=== PATIENT | male | born 1985 | race Caucasian/White ===

== ENCOUNTER 2016-09-24 21:01 | Inpatient (IN) | payer SELFPAY ==
[~2016-09-24] VITALS: Ht 175.3 cm; Wt 71.5 kg
[2016-09-24 21:54] VITALS: Ht 175.3 cm; Wt 71.5 kg
[2016-09-24 22:37] LABS: ADD SCAN DIFF NO
[2016-09-24 22:41] LABS: BASOPHILS % 0.5 % (0.0-2.0); EOSINOPHILS # 0.1 10^3/ul (0.0-0.5); EOSINOPHILS % 1.6 % (0.0-7.0); HEMATOCRIT 45.2 % (42.0-52.0); HEMOGLOBIN 15.7 g/dl (14.0-18.0); LYMPHOCYTES # 2.5 10^3/ul (0.8-2.9); LYMPHOCYTES % 28.6 % (15.0-51.0); MEAN CORPUSCULAR HEMOGLOBIN 29.8 pg (29.0-33.0); MEAN CORPUSCULAR HGB CONC 34.7 g/dl (32.0-37.0); MEAN CORPUSCULAR VOLUME 85.8 fl (82.0-101.0); MEAN PLATELET VOLUME 9.8 fl (7.4-10.4); MONOCYTE # 0.8 10^3/ul (0.3-0.9); MONOCYTES % 9.5 % (0.0-11.0); NEUTROPHIL # 5.2 10^3/ul (1.6-7.5); NEUTROPHILS % 59.5 % (39.0-77.0); PLATELET COUNT 265 10^3/UL (140-415); RED BLOOD COUNT 5.27 10^6/ul (4.70-6.10); RED CELL DISTRIBUTION WIDTH 12.7 % (11.5-14.5); WHITE BLOOD COUNT 8.7 10^3/ul (4.8-10.8)
[2016-09-24 22:51] LABS: CREATININE 0.97 mg/dl (0.61-1.24)
[2016-09-24 22:52] LABS: CALCIUM 9.7 mg/dl (8.4-10.2)
--- NOTE | 2016-09-24 23:16 | RADRPT ---
PROCEDURE: XR Chest. CLINICAL INDICATION: Chest pain TECHNIQUE: AP Portable chest. COMPARISON: No pertinent prior examinations were submitted for comparison. FINDINGS: The cardiomediastinal silhouette is normal. There is a large left pneumothorax picking up approxima tely 80% of the left chest volume. The osseous structures are unremarkable. There is no obvious med iastinal shift. IMPRESSION: Large left pneumothorax. Findings were discussed with HERMINIA SLADE at approximately 09/24/2016 11:13:07 PM. RPTAT: HIKT .José Miguel Lindsey MD, MD Date Time Electronically viewed and signed by .José Miguel Lindsey MD, MD on 09/24/2016 23:16 .T/
[2016-09-25] VITALS (11 sets, daily range): BP systolic 122–154; BP diastolic 76–95; PULSE 50–87; RESP 15–20; TEMP 98.2; BMI 23.3
[2016-09-25] MEDS ORDERED: ETOMIDATE 20 MG INJ IV ONE
[2016-09-25] MEDS ORDERED: PROPOFOL 20 ML ONE ×2 (00:51→00:52)
[2016-09-25] MEDS ORDERED: PROPOFOL 0 ML ONE (01:09)
[2016-09-25] MEDS ORDERED: ONDANSETRON 4 MG INJ IV STA (01:26)
[2016-09-25] MEDS ORDERED: HYDROmorphONE 1 MG/ML SYG IV STA (01:26)
[2016-09-25] MEDS ORDERED: PROPOFOL 200 MG INJ IV ONE (01:30)
[2016-09-25] MEDS ORDERED: CEFTRIAXONE 1 GM/50 ML (PMX) 50 ML IVPB ONE (01:30)
--- NOTE | 2016-09-25 01:48 | RADRPT ---
PROCEDURE: Chest. CLINICAL INDICATION: Chest pain. TECHNIQUE: Single frontal view of the chest was obtained. COMPARISON: 09/24/2016. FINDINGS: There is interval placement of a left-sided chest tube extending to the perihilar region. The left- sided pneumothorax is no longer visualized. The cardiac silhouette is within normal limits. The ao rtic arch is unremarkable. There is no focal consolidation, vascular congestion or pleural effusion . There is mild left basilar atelectasis. IMPRESSION: Interval left-sided chest tube placement with pneumothorax no longer visualized. Mild left basilar atelectasis. .Alexis Gil MD, Date Time Electronically viewed and signed by .Alexis Gil MD, MD on 09/25/2016 01:48 .T/
[2016-09-25] MEDS ORDERED: SOD CHLORIDE 0.9% 1,000 ML IV SCH (01:59)
[2016-09-25] MEDS ORDERED: ACETAMINOPHEN 325 MG TAB PO PRN ×3 (02:00→13:30)
[2016-09-25] MEDS ORDERED: ONDANSETRON 4 MG INJ IV PRN (02:00)
--- NOTE | 2016-09-25 02:08 | ERA ---
ER Documentation Chief Complaint Date/Time DATE: 09/25/16 TIME: 02:04 Chief Complaint Shortness of breath, and diminished lung sound x2 days HPI This is a 31-year-old male here for double pneumothorax. The patient has had a pneumothorax a few years ago that was spontaneous and was treated with a pigtail catheter. The patient states 2 days ago he had sudden left-sided chest pain with shortness of breath that he said was reminiscent of his prior pneumothorax. He is not having any shortness of breath but thought that it was not getting better so decided to get evaluated. He does have some pleuritic pain when he breathes in and some exertional dyspnea but not at rest ROS All systems reviewed and are negative except as per history of present illness. Medications Home Meds No Active Prescriptions or Reported Meds Allergies Allergies: Coded Allergies: No Known Allergy (Unverified , 09/24/16) PMhx/Soc Medical and Surgical Hx: pt denies Medical Hx, pt denies Surgical Hx History of Surgery: No Anesthesia Reaction: No Hx Neurological Disorder: No Hx Respiratory Disorders: No Hx Cardiac Disorders: No Hx Psychiatric Problems: No Hx Miscellaneous Medical Probl: No Hx Alcohol Use: No Hx Substance Use: No Hx Tobacco Use: No Smoking Status: Never smoker FmHx Family History: No coronary disease Physical Exam Vitals Vital Signs Date Time Temp Pulse Resp B/P Pulse Ox O2 Delivery O2 Flow Rate FiO2 09/25/16 00:50 100 15.0 100 09/25/16 00:30 98.7 102 21 120/82 99 Nasal Cannula 2.0 09/24/16 22:00 98.7 111 20 142/100 98 Room Air 09/24/16 21:54 98.7 108 18 136/87 99 Physical Exam Const: Well-developed, well-nourished Head: Atraumatic, normocephalic Eyes: Normal Conjunctiva, PERRLA, EOMI, normal sclera, no nystagmus ENT: Normal External Ears, Nose and Mouth, moist mucus membranes. Neck: Full range of motion. No meningismus, no lymphadenopathy. Resp: Right lung is clear to auscultation, left lung has no breath sounds, trachea is midline Cardio: Regular rate and rhythm, no murmurs, S1 S2 present Abd: Soft, non tender x 4, non distended. Normal bowel sounds, no guarding or rebound, no pulsitile abdominal masses or bruits Skin: No petechiae or rashes, no ecchymosis , no maculopapular rash Back: No midline or flank tenderness Ext: No cyanosis, or edema, FROM x 4, normal inspection, neurovascularly intact x 4 Neur: Awake and alert, STR 5/5 x 4, sensation intact x 4, no focal findings, cerebellum intact Psych: Normal Mood and Affect Result Diagram: 09/24/16222409/24/162224 Results 24 hrs Laboratory Tests Test 09/24/16 22:25 Anion Gap 18 Basophils # 0.010^3/ul Basophils % 0.5% Blood Urea Nitrogen 13mg/dl Calcium Level 9.7mg/dl Carbon Dioxide Level 30mmol/L Chloride Level 102mmol/L Creatinine 0.97mg/dl Eosinophils # 0.110^3/ul Eosinophils % 1.6% Glucose Level 104mg/dl Hematocrit 45.2% Hemoglobin 15.7g/dl Lymphocytes # 2.510^3/ul Lymphocytes % 28.6% Mean Corpuscular Hemoglobin 29.8pg Mean Corpuscular Hemoglobin Concent 34.7g/dl Mean Corpuscular Volume 85.8fl Mean Platelet Volume 9.8fl Monocytes # 0.810^3/ul Monocytes % 9.5% Neutrophils # 5.210^3/ul Neutrophils % 59.5% Nucleated Red Blood Cells # 0.010^3/ul Nucleated Red Blood Cells % 0.0/100WBC Platelet Count 45082^3/UL Potassium Level 4.0mmol/L Red Blood Count 5.2710^6/ul Red Cell Distribution Width 12.7% Sodium Level 146mmol/L White Blood Count 8.710^3/ul Current Medications Medications (Trade) Dose Ordered Sig/Evette Route PRN Reason Start Time Stop Time Status Last Admin Dose Admin Etomidate 100 mg 100 mg ONCE ONCE IV 09/25/16 00:00 09/25/16 00:01 DC Propofol 20 ml @ ud STK-MED ONCE .ROUTE 09/25/16 00:51 09/25/16 00:52 DC Propofol 20 ml @ ud STK-MED ONCE .ROUTE 09/25/16 00:52 09/25/16 00:53 DC Propofol 0 ml @ ud STK-MED ONCE .ROUTE 09/25/16 01:09 09/25/16 01:10 DC Ceftriaxone Sodium (Rocephin) 50 ml @ 100 mls/hr ONCE ONCE IVPB 09/25/16 01:30 09/25/16 01:59 DC 09/25/16 01:30 Propofol (Diprivan) 280 mg ONCE ONCE IV 09/25/16 01:30 09/25/16 01:31 DC Hydromorphone HCl (Dilaudid) 1 mg ONCE STAT IV 09/25/16 01:26 09/25/16 01:27 DC 09/25/16 01:30 Ondansetron HCl 4 mg 4 mg ONCE STAT IV 09/25/16 01:26 09/25/16 01:27 DC 09/25/16 01:30 Sodium Chloride (NS) 1,000 ml @ 80 mls/hr [id number] IV 09/25/16 01:59 09/25/16 14:28 Ondansetron HCl (Zofran Inj) 4 mg ER BRIDGE PRN IV NAUSEA AND/OR VOMITING 09/25/16 02:00 09/26/16 01:59 Acetaminophen (Tylenol Tab) 650 mg ER BRIDGE PRN PO MILD PAIN/FEVER 09/25/16 02:00 09/26/16 01:59 Procedures/MDM PROCEDURE: XR Chest. CLINICAL INDICATION: Chest pain TECHNIQUE: AP Portable chest. COMPARISON: No pertinent prior examinations were submitted for comparison. FINDINGS: The cardiomediastinal silhouette is normal. There is a large left pneumothorax picking up approximately 80% of the left chest volume. The osseous structures are unremarkable. There is no obvious mediastinal shift. IMPRESSION: Large left pneumothorax. Findings were discussed with HERIMNIA SLADE at approximately 09/24/2016 11: 13:07 PM. RPTAT: HIKT .José Miguel Lindsey MD, MD Date Time Electronically viewed and signed by .José Miguel Lindsey MD, on 09/24/2016 23:16 .T/ CC: HERMINIA DAVISON DO PROCEDURE: Chest. CLINICAL INDICATION: Chest pain. TECHNIQUE: Single frontal view of the chest was obtained. COMPARISON: 09/24/2016. FINDINGS: There is interval placement of a left-sided chest tube extending to the perihilar region. The left-sided pneumothorax is no longer visualized. The cardiac silhouette is within normal limits. The aortic arch is unremarkable. There is no focal consolidation, vascular congestion or pleural effusion. There is mild left basilar atelectasis. IMPRESSION: Interval left-sided chest tube placement with pneumothorax no longer visualized. Mild left basilar atelectasis. .Alexis Gil MD, MD Date Time Electronically viewed and signed by .Alexis Gil MD, on 09/25/2016 01:48 .T/ CC: HERMINIA DAVISON DO Chest Tube Placement by me: Patient consented, sterilely draped, full prep, gown, glove, mask, time out performed. Anesthesia: Conscious sedation Location: Mid-Anterior Axillary Line, approximate 5th intercostal Device: 28 [place] chest tube Technique: Vertical incision, blunt dissection above the superior rib border , tactile confirmation Results: Chest tube fogging Secured with suture and taping. No complications. Attached to waterseal. Chest X-ray 1V Interpreted by me: Pneumothorax diminished , chest tube in pleural space facing cephalad. Normal soft tissue. Procedural Sedation: Pre-assessment performed. See preceding complete history and physical for details. Time out performed. See sedation documentation for details. Risk, benefits and alternatives were discussed with the patient. Medication(s): Propofol Complications: No hypoxic or apneic events Recovered without incident. A minimum of 16 minutes of face to face time was performed including preparation, sedation and recovery time. Critical Care Time: 30 minutes Treatments/Evaluations: Close monitoring and treatment of unstable vital signs, cardiorespiratory, and neurologic status, while maintaining tight balance of fluid, respiratory, and cardiac interventions. This time includes discussing the case with the patient and the patient's family. This time does not include all procedures stated elsewhere in this record. This time also includes reviewing old records, labs and radiological studies. This time includes examining and re-examining the patient. Additionally, this time also includes arranging care with admitting and consulting physicians. Patient was given Rocephin 1 g IV. Dilaudid and Zofran for pain and nausea control. Tolerated the procedure well he is resting comfortably in bed no apparent chest tube leak Departure Diagnosis: Primary Impression: Pneumothorax, left Condition: Stable HERMINIA DAVISON DO Sep 25, 2016 02:08
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
[2016-09-25] MEDS ORDERED: ONDANSETRON 4 MG TAB PO PRN ×2 (03:30→13:30)
[2016-09-25] MEDS ORDERED: NACL 0.9% 3 ML SYG IV SCH (03:30)
[2016-09-25] MEDS: SOD CHLORIDE 0.9% 1,000 ML IV SCH ×3 (04:00→11:27)
[2016-09-25] MEDS: FAMOTIDINE 20 MG TAB PO SCH ×2 (09:13→20:17)
--- NOTE | 2016-09-25 11:08 | PN ---
Date/Time of Note Date/Time of Note DATE: 09/25/16 TIME: 11:03 Assessment/Plan VTE Prophylaxis VTE Prophylaxis Intervention: SCD's Lines/Catheters IV Catheter Type (from Nrsg): Saline Lock Urinary Cath still in place: No Assessment/Plan Assessment/Plan 1) Spontaneous Left Pneumothorax - Chest Tube placed in ER - IVF NS pain control with Tylenol, norco, IV dilaudid to see patient Subjective 24 Hr Interval Summary Free Text/Dictation s/p chest tube palcement for spontaneuous pneumothorax Exam/Review of Systems Vital Signs Vitals Vital Signs Date Time Temp Pulse Resp B/P Pulse Ox O2 Delivery O2 Flow Rate FiO2 09/25/16 08:06 62 09/25/16 07:48 98.6 19 137/81 98 09/25/16 04:30 Nasal Cannula 3.0 09/25/16 00:50 100 Intake and Output 09/24/16 09/24/16 09/25/16 15:00 23:00 07:00 Intake Total 60 ml Balance 60 ml Exam Const: Well-developed, well-nourished 31 year old male in NAD, lying in bed , awake while RN does his intake on the jean pierre. Head: Atraumatic, normocephalic Eyes: PERRLA, EOMI, no scleral icterus ENT: Normal External Ears, Nose and Mouth, moist mucus membranes. Neck: Full range of motion. Supple. No lymphadenopathy. Trachea midline. Resp: CTA bilaterally with moderate airflow as it hurts patient at the chest tube site to take a deeper breath. Cardio: Normal rate and regular rhythm, no murmurs, S1 S2 normal. Abd: Soft, non tender x 4, non distended. Normal bowel sounds, no guarding or rebound, no pulsitile abdominal masses or bruits Skin: No petechiae or rashes, no ecchymosis , no maculopapular rash Ext: No cyanosis, or edema, neurovascularly intact x 4 Neur: Awake and alert, CN II - XII grossly intact, non-focal. Speech normal Psych: Normal Mood and Affect. Good eye contact. Results Result Diagram: 09/24/16222409/24/162224 Results 24 hrs Laboratory Tests Test 09/24/16 22:25 Anion Gap 18 H Basophils # 0.0 Basophils % 0.5 Blood Urea Nitrogen 13 Calcium Level 9.7 Carbon Dioxide Level 30 Chloride Level 102 Creatinine 0.97 Eosinophils # 0.1 Eosinophils % 1.6 Glucose Level 104 Hematocrit 45.2 Hemoglobin 15.7 Lymphocytes # 2.5 Lymphocytes % 28.6 Mean Corpuscular Hemoglobin 29.8 Mean Corpuscular Hemoglobin Concent 34.7 Mean Corpuscular Volume 85.8 Mean Platelet Volume 9.8 Monocytes # 0.8 Monocytes % 9.5 Neutrophils # 5.2 Neutrophils % 59.5 Nucleated Red Blood Cells # 0.0 Nucleated Red Blood Cells % 0.0 Platelet Count 265 Potassium Level 4.0 Red Blood Count 5.27 Red Cell Distribution Width 12.7 Sodium Level 146 H White Blood Count 8.7 Medications Medications Current Medications Sodium Chloride 1,000 ml @ 80 mls/hr [id number] IV Last administered on 09/25/16 02:03; Admin Dose 80 MLS/HR; Start 09/25/16 at 01:59; Stop 09/25/16 at 14:28 Sodium Chloride (NS) 1,000 ml @ 125 mls/hr Q8H IV Last administered on 04:00; Admin Dose 125 MLS/HR; Start 09/25/16 at 03:09 Ondansetron HCl (Zofran Tab) 4 mg Q6H PRN PO NAUSEA AND/OR VOMITING; Start 09/25 at 03:30 Acetaminophen (Tylenol Tab) 650 mg Q6H PRN PO PAIN LEVEL 1-3 OR FEVER Last administered on 09/25/16 04:16; Admin Dose 650 MG; Start 09/25/16 at 03:30 Famotidine (Pepcid) 20 mg Q12 PO Last administered on 09/25/16 09:13; Admin Dose 20 MG; Start 09/25/16 at 09:00 YOLI MEJIA MD Sep 25, 2016 11:08
[2016-09-25] MEDS ORDERED: HYDROCODONE/APAP (5/325) TAB PO PRN (11:30)
[2016-09-25] MEDS ORDERED: ZOLPIDEM 5 MG TAB PO PRN (11:30)
[2016-09-25] MEDS ORDERED: HYDROmorphONE 1 MG/ML SYG IV PRN (11:30)
[2016-09-26] VITALS (11 sets, daily range): BP systolic 131–152; BP diastolic 84–88; PULSE 58–80; RESP 15–22
[2016-09-26] MEDS: SOD CHLORIDE 0.9% 1,000 ML IV SCH ×2 (00:32→13:50)
[2016-09-26 06:10] LABS: AADO2 Arterial 24.2 mmHg (7.0-24.0); Allen Test ACCEPTAB; Arterial Base Excess 1.2 mmol/L (-3.0-3); Arterial COHb 0.1 % (0.0-3.0); Arterial Fraction of Oxyhgb 94.5 % (93.0-99.0); Arterial MetHb 0.4 % (0.0-1.5); Arterial Total Hemglobin 15.2 g/dl (12.0-18.0); MODE ROOM AIR
[2016-09-26 07:29] LABS: ADD SCAN DIFF NO
[2016-09-26 07:33] LABS: BASOPHILS % 0.5 % (0.0-2.0); EOSINOPHILS # 0.1 10^3/ul (0.0-0.5); EOSINOPHILS % 1.9 % (0.0-7.0); HEMATOCRIT 40.9 % (42.0-52.0); HEMOGLOBIN 14.1 g/dl (14.0-18.0); LYMPHOCYTES # 1.4 10^3/ul (0.8-2.9); LYMPHOCYTES % 22.6 % (15.0-51.0); MEAN CORPUSCULAR HEMOGLOBIN 29.7 pg (29.0-33.0); MEAN CORPUSCULAR HGB CONC 34.5 g/dl (32.0-37.0); MEAN CORPUSCULAR VOLUME 86.3 fl (82.0-101.0); MEAN PLATELET VOLUME 9.5 fl (7.4-10.4); MONOCYTE # 0.6 10^3/ul (0.3-0.9); MONOCYTES % 9.6 % (0.0-11.0); NEUTROPHIL # 4.1 10^3/ul (1.6-7.5); NEUTROPHILS % 64.9 % (39.0-77.0); PLATELET COUNT 203 10^3/UL (140-415); RED BLOOD COUNT 4.74 10^6/ul (4.70-6.10); RED CELL DISTRIBUTION WIDTH 12.6 % (11.5-14.5); WHITE BLOOD COUNT 6.4 10^3/ul (4.8-10.8)
[2016-09-26 07:46] LABS: PARTIAL THROMBOPLASTIN TIME 32.9 Sec (25.0-35.0); PROTIME 13.2 Sec (12.2-14.2)
[2016-09-26 07:59] LABS: CALCIUM 8.9 mg/dl (8.4-10.2); CREATININE 0.8 mg/dl (0.61-1.24)
--- NOTE | 2016-09-26 09:27 | RADRPT ---
PROCEDURE: XR Chest AP portable CLINICAL INDICATION: Tube placement for pneumothorax TECHNIQUE: An AP portable radiograph of the chest was submitted. COMPARISON: 09/25/2016 FINDINGS: Support Hardware: The left thoracostomy tube has been repositioned with the tip directed superiorly at the lateral aspect of the left upper lung zone. Cardiovascular: The cardiovascular silhouette appears unremarkable. Lung [place]: Slight discoid atelectasis is again seen in the left lower lobe. Pleural Spaces: No pneumothorax or pleural effusion is identified. Osseous Structures: The osseous structures appear intact. Soft Tissues: The soft tissues appear unremarkable. IMPRESSION: 1. Repositioning of the left thoracostomy tube with the tip now directed superiorly at the lateral left upper lung zone. 2. No pneumothorax or pleural fluid accumulation is identified. 3. Persistent minimal discoid atelectasis seen in the left lower lobe. 4. Otherwise, unremarkable portable chest. Physician Redd Date Time Electronically viewed and signed by Physician Redd on 09/26/2016 09:26 /
[2016-09-26] MEDS: FAMOTIDINE 20 MG TAB PO SCH ×2 (09:48→20:50)
--- NOTE | 2016-09-26 12:03 | PN ---
Date/Time of Note Date/Time of Note DATE: 09/26/16 TIME: 12:01 Assessment/Plan VTE Prophylaxis VTE Prophylaxis Intervention: SCD's Lines/Catheters IV Catheter Type (from Nrsg): Saline Lock Urinary Cath still in place: No Assessment/Plan Assessment/Plan 1) Spontaneous Left Pneumothorax - Chest Tube placed in ER pain control with Tylenol, norco, IV dilaudid to see patient Subjective 24 Hr Interval Summary Free Text/Dictation s/p chest tube in ED, BP stable,afebrile, Exam/Review of Systems Vital Signs Vitals Vital Signs Date Time Temp Pulse Resp B/P Pulse Ox O2 Delivery O2 Flow Rate FiO2 09/26/16 11:55 98.2 69 19 152/84 98 09/25/16 20:30 Nasal Cannula 3.0 09/25/16 00:50 100 Intake and Output 09/25/16 09/25/16 09/26/16 14:59 22:59 06:59 Intake Total 1000 ml 120 ml 1060 ml Balance 1000 ml 120 ml 1060 ml Exam Head: Atraumatic, normocephalic Eyes: PERRLA, EOMI, no scleral icterus ENT: Normal External Ears, Nose and Mouth, moist mucus membranes. Neck: Full range of motion. Supple. No lymphadenopathy. Trachea midline. Resp: CTA bilaterally with moderate airflow as it hurts patient at the chest tube site to take a deeper breath. Cardio: Normal rate and regular rhythm, no murmurs, S1 S2 normal. Abd: Soft, non tender x 4, non distended. Normal bowel sounds, no guarding or rebound, no pulsitile abdominal masses or bruits Results Result Diagram: 09/26/16 0715 09/26/16 0715 Results 24 hrs Laboratory Tests Test 09/26/16 05:00 09/26/16 07:15 Arterial Blood HCO3 26.0 Arterial Blood Base Excess 1.2 Arterial Blood Oxygen Saturation 95.0 Ross Test ACCEPTAB Arterial Blood Gas Puncture Site Right Radial Arterial Blood Carboxyhemoglobin 0.1 Arterial Blood Date Drawn 09/26/2016 5:10:00 AM Arterial Blood Methemoglobin 0.4 Arterial Blood pCO2 (Temp correct) 42.2 Arterial Blood pH (Temp corrected) 7.408 Arterial Blood pO2 (Temp corrected) 75.0 L Blood Gas A-a O2 Differential 24.2 H Blood Gas Modality ROOM AIR Blood Gas Notified Time 09/26/2016 5:23:00 AM Blood Gas Notified Whom MA Blood Gas Specimen Source Blood arterial Blood Gas Temperature 37.0 FiO2 21.0 Oxyhemoglobin Percent 94.5 Total Hemoglobin 15.2 Activated Partial Thromboplast Time 32.9 Anion Gap 13 Basophils # 0.0 Basophils % 0.5 Blood Urea Nitrogen 9 Calcium Level 8.9 Carbon Dioxide Level 30 Chloride Level 104 Creatinine 0.80 Eosinophils # 0.1 Eosinophils % 1.9 Glucose Level 89 Hematocrit 40.9 L Hemoglobin 14.1 INR International Normalized Ratio 1.00 Lymphocytes # 1.4 Lymphocytes % 22.6 Mean Corpuscular Hemoglobin 29.7 Mean Corpuscular Hemoglobin Concent 34.5 Mean Corpuscular Volume 86.3 Mean Platelet Volume 9.5 Monocytes # 0.6 Monocytes % 9.6 Neutrophils # 4.1 Neutrophils % 64.9 Nucleated Red Blood Cells # 0.0 Nucleated Red Blood Cells % 0.0 Platelet Count 203 # Potassium Level 4.0 Prothrombin Time 13.2 Prothrombin Time Ratio 1.0 Red Blood Count 4.74 Red Cell Distribution Width 12.6 Sodium Level 143 White Blood Count 6.4 # Medications Medications Current Medications Sodium Chloride (NS) 1,000 ml @ 75 mls/hr [id number] IV Last administered on 09/26 00:32; Admin Dose 75 MLS/HR; Start 09/25/16 at 03:09 Famotidine (Pepcid) 20 mg Q12 PO Last administered on 09/26/16 09:48; Admin Dose 20 MG; Start 09/25/16 at 09:00 Acetaminophen (Tylenol Tab) 650 mg Q4H PRN PO PAIN LEVEL 1-3 OR FEVER Last administered on 09/25/16 23:43; Admin Dose 650 MG; Start 09/25/16 at 13:30 Ondansetron HCl (Zofran Tab) 4 mg Q4H PRN PO NAUSEA AND/OR VOMITING; Start 09/25 at 13:30 Acetaminophen/ Hydrocodone Bitart ([place] (5/325)) 1 tab Q4H PRN PO moderate pain; Start 09/25/16 at 11:30 Hydromorphone HCl (Dilaudid) 1 mg Q4H PRN IV severe pain ; Start 09/25/16 at 11: 30 Zolpidem Tartrate (Ambien) 5 mg HS PRN PO INSOMNIA; Start 09/25/16 at 11:30 YOLI MEJIA MD Sep 26, 2016 12:02
--- NOTE | 2016-09-26 17:27 | CONS ---
DATE OF ADMISSION: 09/25/2016 DATE OF CONSULTATION: CARDIOLOGY CONSULTATION REASON FOR CONSULTATION: Pneumothorax. HISTORY OF PRESENT ILLNESS: This is a 31-year-old male, who was admitted to the emergency room amanda use of shortness of breath. The left side was found to have a pneumothorax. A chest tube was place d. Subsequently, on the chest x-ray today, the lung is expanded. Chest tube was minimal drainage. PAST MEDICAL HISTORY: None. ALLERGIES: NONE. SOCIAL HISTORY: No smoking, drinking, or drug use. PHYSICAL EXAMINATION: VITAL SIGNS: Blood pressure is 152/84, pulse is 69, respirations 19, saturations 98% on 3L of oxyge n, temperature 98.2. HEENT: Normocephalic, atraumatic. PERRLA. NECK: Supple. No JVD, no carotid bruits. CARDIOVASCULAR: Normal S1, S2. LUNGS: Clear. ABDOMEN: Soft. EXTREMITIES: Warm. Chest tube is in place. IMPRESSION: Status post chest tube placement for spontaneous pneumothorax. RECOMMENDATIONS: Will continue chest tube suction. Repeat chest x-ray. Dictated By: MERLE LOCKE/VALERI Conf#: [id number] DID#: [id number]
[2016-09-27] VITALS (11 sets, daily range): BP systolic 124–138; BP diastolic 77–91; PULSE 50–83; RESP 18–20
[2016-09-27] MEDS: SOD CHLORIDE 0.9% 1,000 ML IV SCH ×2 (03:10→15:35)
[2016-09-27] MEDS: FAMOTIDINE 20 MG TAB PO SCH ×2 (08:28→21:00)
--- NOTE | 2016-09-27 12:31 | PN ---
Date/Time of Note Date/Time of Note DATE: 09/27/16 TIME: 12:30 Assessment/Plan VTE Prophylaxis VTE Prophylaxis Intervention: SCD's Lines/Catheters IV Catheter Type (from Nrsg): Saline Lock Assessment/Plan Assessment/Plan 1) Spontaneous Left Pneumothorax - Chest Tube placed in ER pain control with Tylenol, norco, IV dilaudid Saw pt Subjective 24 Hr Interval Summary Free Text/Dictation still has chest tube, seen by Exam/Review of Systems Vital Signs Vitals Vital Signs Date Time Temp Pulse Resp B/P Pulse Ox O2 Delivery O2 Flow Rate FiO2 09/27/16 12:00 98.0 70 18 124/80 98 09/27/16 07:22 Nasal Cannula 3.0 09/25/16 00:50 100 Intake and Output 09/26/16 09/26/16 09/27/16 15:00 23:00 07:00 Intake Total 700 ml 750 ml Output Total 1201 ml 1401 ml Balance -501 ml -651 ml Exam Head: Atraumatic, normocephalic Eyes: PERRLA, EOMI, no scleral icterus ENT: Normal External Ears, Nose and Mouth, moist mucus membranes. Neck: Full range of motion. Supple. No lymphadenopathy. Trachea midline. Resp: CTA bilaterally with moderate airflow as it hurts patient at the chest tube site to take a deeper breath. Cardio: Normal rate and regular rhythm, no murmurs, S1 S2 normal. Abd: Soft, non tender x 4, non distended. 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 Lymph: nl lymph nodes Results Result Diagram: 09/26/1671409/26/16714 Medications Medications Current Medications Sodium Chloride (NS) 1,000 ml @ 75 mls/hr [id number] IV Last administered on 09/26t 00:32; Admin Dose 75 MLS/HR; Start 09/25/16 at 03:09 Famotidine (Pepcid) 20 mg Q12 PO Last administered on 09/27/16 08:28; Admin Dose 20 MG; Start 09/25/16 at 09:00 Acetaminophen (Tylenol Tab) 650 mg Q4H PRN PO PAIN LEVEL 1-3 OR FEVER Last administered on 09/25/16 23:43; Admin Dose 650 MG; Start 09/25/16 at 13:30 Ondansetron HCl (Zofran Tab) 4 mg Q4H PRN PO NAUSEA AND/OR VOMITING; Start 09/25 at 13:30 Acetaminophen/ Hydrocodone Bitart ([place] (5/325)) 1 tab Q4H PRN PO moderate pain; Start 09/25/16 at 11:30 Hydromorphone HCl (Dilaudid) 1 mg Q4H PRN IV severe pain ; Start 09/25/16 at 11: 30 Zolpidem Tartrate (Ambien) 5 mg HS PRN PO INSOMNIA; Start 09/25/16 at 11:30 YOLI MEJIA MD Sep 27, 2016 12:31
--- NOTE | 2016-09-27 20:53 | PN ---
Date/Time of Note Date/Time of Note DATE: 09/27/16 TIME: 20:52 Assessment/Plan Lines/Catheters IV Catheter Type (from Nrsg): Saline Lock Barnes in Place (from Nrsg): No Assessment/Plan Chief Complaint/Hosp Course SP CT for PTX will place CT to water seal tomorrow Problems: Subjective 24 Hr Interval Summary Constitutional: improved Pain Control: mild Exam/Review of Systems Vital Signs Vitals Vital Signs Date Time Temp Pulse Resp B/P Pulse Ox O2 Delivery O2 Flow Rate FiO2 09/27/16 20:00 Nasal Cannula 3.0 09/27/16 16:30 98.4 80 18 131/77 98 09/25/16 00:50 100 Intake and Output 09/26/16 09/26/16 09/27/16 15:00 23:00 07:00 Intake Total 700 ml 750 ml Output Total 1201 ml 1401 ml Balance -501 ml -651 ml Exam Neck: non-tender, supple Respiratory: clear to auscultation, normal air movement Cardiovascular: nl pulses, regular rate and rhythm Gastrointestinal: nl liver, spleen, non-tender, soft Results Result Diagram: 09/26/16 0715 09/26/16 0715 MERLE MCPHERSON MD Sep 27, 2016 20:53
[2016-09-28] VITALS (12 sets, daily range): BP systolic 121–142; BP diastolic 78–95; PULSE 60–86; RESP 16–20
[2016-09-28] MEDS: SOD CHLORIDE 0.9% 1,000 ML IV SCH ×2 (00:29→05:45)
[2016-09-28] MEDS: FAMOTIDINE 20 MG TAB PO SCH ×2 (09:00→19:26)
--- NOTE | 2016-09-28 12:31 | RADRPT ---
PROCEDURE: XR Chest. CLINICAL INDICATION: Chest pain. Left pneumothorax. TECHNIQUE: Single frontal view. COMPARISON: 09/26/2016. FINDINGS: There is mild linear atelectasis at the left lung base. The lungs are otherwise clear. The heart size is normal. There is no pleural effusion or pneumothorax. A left chest tube is present in satisfactory position. IMPRESSION: 1. Mild linear atelectasis at the left lung base. 2. Left chest tube. 3. No pneumothorax. RPTAT: QQ .Joaquin Camejo MD, MD Date Time Electronically viewed and signed by .Joaquin Camejo MD, MD on 09/28/2016 12:31 .R/
--- NOTE | 2016-09-28 18:18 | PN ---
Date/Time of Note Date/Time of Note DATE: 09/28/16 TIME: 18:17 Assessment/Plan Lines/Catheters IV Catheter Type (from Nrsg): Saline Lock Barnes in Place (from Nrsg): No Assessment/Plan Chief Complaint/Hosp Course SP CT for PTX CT to water seal awaiting CXR Problems: Subjective 24 Hr Interval Summary Constitutional: improved Pain Control: mild Exam/Review of Systems Vital Signs Vitals Vital Signs Date Time Temp Pulse Resp B/P Pulse Ox O2 Delivery O2 Flow Rate FiO2 09/28/16 16:37 83 09/28/16 13:22 98.2 18 134/80 98 09/28/16 09:06 Nasal Cannula 3.0 09/25/16 00:50 100 Intake and Output 09/27/16 09/27/16 09/28/16 15:00 23:00 07:00 Intake Total 250 ml Output Total 0 ml 18 ml 6 ml Balance 0 ml -18 ml 244 ml Exam Neck: non-tender, supple Respiratory: clear to auscultation, normal air movement Cardiovascular: nl pulses, regular rate and rhythm Results Result Diagram: 09/26/16 0715 09/26/16 0715 MERLE MCPHERSON MD Sep 28, 2016 18:18
--- NOTE | 2016-09-28 22:08 | PN ---
Date/Time of Note Date/Time of Note DATE: 09/28/16 TIME: 22:06 Assessment/Plan VTE Prophylaxis VTE Prophylaxis Intervention: SCD's Lines/Catheters IV Catheter Type (from Nrsg): Saline Lock Urinary Cath still in place: No Assessment/Plan Assessment/Plan 1) Spontaneous Left Pneumothorax - Chest Tube placed in ER pain control with Tylenol, norco, IV dilaudid Saw pt CT chest to water seal Subjective 24 Hr Interval Summary Free Text/Dictation s/p CT surgery follow up , CT to water seal Exam/Review of Systems Vital Signs Vitals Vital Signs Date Time Temp Pulse Resp B/P Pulse Ox O2 Delivery O2 Flow Rate FiO2 09/28/16 21:04 98.0 78 18 141/86 98 09/28/16 20:30 Room Air 09/28/16 09:06 3.0 09/25/16 00:50 100 Intake and Output 09/27/16 09/27/16 09/28/16 15:00 23:00 07:00 Intake Total 250 ml Output Total 0 ml 18 ml 6 ml Balance 0 ml -18 ml 244 ml Exam Constitutional: alert Respiratory: clear to auscultation, other (left chest tube in place ) Cardiovascular: regular rate and rhythm Gastrointestinal: soft Musculoskeletal: nl extremities to inspection Extremities: normal pulses 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 Lymph: nl lymph nodes Results Result Diagram: 09/26/1671409/26/16714 Medications Medications Current Medications Famotidine (Pepcid) 20 mg Q12 PO Last administered on 09/27/16 08:28; Admin Dose 20 MG; Start 09/25/16 at 09:00 Acetaminophen (Tylenol Tab) 650 mg Q4H PRN PO PAIN LEVEL 1-3 OR FEVER Last administered on 09/25/16 23:43; Admin Dose 650 MG; Start 09/25/16 at 13:30 Ondansetron HCl (Zofran Tab) 4 mg Q4H PRN PO NAUSEA AND/OR VOMITING; Start 09/25 at 13:30 Acetaminophen/ Hydrocodone Bitart ([place] (5/325)) 1 tab Q4H PRN PO moderate pain; Start 09/25/16 at 11:30 Hydromorphone HCl (Dilaudid) 1 mg Q4H PRN IV severe pain ; Start 09/25/16 at 11: 30 Zolpidem Tartrate (Ambien) 5 mg HS PRN PO INSOMNIA; Start 09/25/16 at 11:30 YOLI MEJIA MD Sep 28, 2016 22:07
[2016-09-29] VITALS (12 sets, daily range): BP systolic 121–146; BP diastolic 72–86; PULSE 60–95; RESP 18–20
--- NOTE | 2016-09-29 06:55 | RADRPT ---
PROCEDURE: XR Chest. CLINICAL INDICATION: Pneumothorax, chest tube TECHNIQUE: A single AP view of the chest was obtained. COMPARISON: Chest x-ray dated 09/28/2016 FINDINGS: A left chest tube remains in place. No focal airspace opacification, pleural effusion or pneumothorax is seen. The cardiomediastinal si lhouette is within normal limits for size. The osseous structures are unremarkable. IMPRESSION: Left chest tube remains in place. No definite pneumothorax is seen. RPTAT: HH .Alix Garcia MD, MD Date Time Electronically viewed and signed by .Alix Garcia MD, MD on 09/29/2016 06:55 .G/
[2016-09-29] MEDS: FAMOTIDINE 20 MG TAB PO SCH ×2 (09:00→21:00)
--- NOTE | 2016-09-29 10:47 | PN ---
Date/Time of Note Date/Time of Note DATE: 09/29/16 TIME: 10:45 Assessment/Plan VTE Prophylaxis VTE Prophylaxis Intervention: SCD's Lines/Catheters IV Catheter Type (from Nrsg): Saline Lock Urinary Cath still in place: No Assessment/Plan Assessment/Plan 1) Spontaneous Left Pneumothorax - Chest Tube placed in ER pain control with Tylenol, norco, IV dilaudid Saw pt- plan is to/d chest tube CT chest to water seal Subjective 24 Hr Interval Summary Free Text/Dictation CXR negativ for pneumothaox, CT chest tube to water seal, follow up CXR pending Exam/Review of Systems Vital Signs Vitals Vital Signs Date Time Temp Pulse Resp B/P Pulse Ox O2 Delivery O2 Flow Rate FiO2 09/29/16 08:45 94 09/29/16 07:53 98.7 18 121/80 96 09/28/16 20:30 Room Air 09/28/16 09:06 3.0 Intake and Output 09/28/16 09/28/16 09/29/16 15:00 23:00 07:00 Intake Total 800 ml 800 ml Output Total 5 ml Balance 800 ml 795 ml Exam Constitutional: alert Respiratory: clear to auscultation, other (left chest tube in place ) Cardiovascular: regular rate and rhythm Gastrointestinal: soft Musculoskeletal: nl extremities to inspection Extremities: normal pulses 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 Lymph: nl lymph nodes Results Result Diagram: 09/26/1615 09/26/1615 Medications Medications Current Medications Famotidine (Pepcid) 20 mg Q12 PO Last administered on 09/27/16 08:28; Admin Dose 20 MG; Start 09/25/16 at 09:00 Acetaminophen (Tylenol Tab) 650 mg Q4H PRN PO PAIN LEVEL 1-3 OR FEVER Last administered on 09/25/16 23:43; Admin Dose 650 MG; Start 09/25/16 at 13:30 Ondansetron HCl (Zofran Tab) 4 mg Q4H PRN PO NAUSEA AND/OR VOMITING; Start 09/25 at 13:30 Acetaminophen/ Hydrocodone Bitart ([place] (5/325)) 1 tab Q4H PRN PO moderate pain; Start 09/25/16 at 11:30 Hydromorphone HCl (Dilaudid) 1 mg Q4H PRN IV severe pain ; Start 09/25/16 at 11: 30 Zolpidem Tartrate (Ambien) 5 mg HS PRN PO INSOMNIA; Start 09/25/16 at 11:30 YOLI MEJIA MD Sep 29, 2016 10:47
--- NOTE | 2016-09-29 20:10 | PN ---
Date/Time of Note Date/Time of Note DATE: 09/29/16 TIME: 20:09 Assessment/Plan Lines/Catheters IV Catheter Type (from Nrsg): Saline Lock Barnes in Place (from Nrsg): No Assessment/Plan Chief Complaint/Hosp Course SP CT for PTX CT to water seal Will DC CT Problems: Subjective 24 Hr Interval Summary Constitutional: improved Pain Control: mild Exam/Review of Systems Vital Signs Vitals Vital Signs Date Time Temp Pulse Resp B/P Pulse Ox O2 Delivery O2 Flow Rate FiO2 09/29/16 20:06 99.1 92 18 141/81 94 09/28/16 20:30 Room Air 09/28/16 09:06 3.0 Intake and Output 09/28/16 09/28/16 09/29/16 15:00 23:00 07:00 Intake Total 800 ml 800 ml Output Total 5 ml Balance 800 ml 795 ml Exam Neck: non-tender, supple Respiratory: clear to auscultation, normal air movement Cardiovascular: nl pulses, regular rate and rhythm Gastrointestinal: nl liver, spleen, non-tender, soft Results Result Diagram: 09/26/16 0715 09/26/16 0715 MERLE MCPHERSON MD Sep 29, 2016 20:10
[2016-09-30 00:23] VITALS: BP 120/72; RESP 20
[2016-09-30 02:27] VITALS: BP 126/83; RESP 18
[2016-09-30 08:26] VITALS: BP 121/73; RESP 18
[2016-09-30] MEDS: FAMOTIDINE 20 MG TAB PO SCH (08:47)
--- NOTE | 2016-09-30 09:11 | PDOCDIS ---
Discharge Instructions CONDITION Patient Condition: Good HOME CARE INSTRUCTIONS: Diet Instructions: Regular ACTIVITY: Activity Restrictions: Slowly Increase Activity Rest between Activity Avoid heavy lifting Avoid Heavy Housework FOLLOW UP/APPOINTMENTS Appointments follow up with his own PMD through HMO insurance in 1-2 week after discharge YOLI MEJIA MD Sep 30, 2016 09:11
--- NOTE | 2016-09-30 09:13 | PDOCDIS ---
Discharge Instructions CONDITION Patient Condition: Good HOME CARE INSTRUCTIONS: Diet Instructions: Regular ACTIVITY: Activity Restrictions: Slowly Increase Activity Rest between Activity Avoid heavy lifting Avoid Heavy Housework FOLLOW UP/APPOINTMENTS Appointments follow up with his own PMD in 1-2 week after discharge. if no PMD -then follow up at [facility] to establish primary care SCHOOL/WORK RELEASE May return to School/Work on: Oct 06, 2016 YOLI MEJIA MD Sep 30, 2016 09:12
--- NOTE | 2016-09-30 13:37 | RADRPT ---
PROCEDURE: XR Chest. CLINICAL INDICATION: Pneumothorax. TECHNIQUE: Single frontal view of the chest was obtained COMPARISON: Chest x-ray 09/28/2016 05:38 p.m. FINDINGS: The soft tissues are normal. The bony elements are normal. The cardiomediastinal silhouette, pulmo nary vasculature and hilar structures are normal. There is a left-sided aorta. the lungs are clear. No pneumothorax is identified. The costophrenic angles are normal. IMPRESSION: 1. Normal chest x-ray. No evidence of a pneumothorax. 2. Status post removal of the left-sided thoracostomy tube identified on 09/28/2016. RPTAT:AAJJ Physician Lalit Date Time Electronically viewed and signed by Tacos Albarado Physician on 09/30/2016 13:37 ZHEN/
== END 2016-09-30 14:50 | disposition home or self-care (01) | DRG 201 ==
LOC: E/R 21:01 → MS4 09-25 04:04 → MS1 09-30 02:10
PROVIDERS: ADMIT Family Medicine; ATTEND Family Medicine
PROC: 0W9B30Z Drainage of Left Pleural Cavity with Drainage Device, Percutaneous Approach (ICD-10-PCS; principal; 2016-09-25)
DX: J93.83 Other pneumothorax (principal)
CPT/HCPCS: 36415; 36600; 71010; 80048; 82803; 85025; 85610; 85730; 96374; 96375; J0696; J1170; J2405; J7030